=== PATIENT | male | born 1995 | race Caucasian/White ===

== ENCOUNTER 2020-07-05 07:43 | Emergency (ER) | payer SELFPAY ==
[~2020-07-05] VITALS: Ht 170.2 cm; Wt 88.0 kg
== END 2020-07-05 09:30 | disposition home or self-care (01) ==
LOC: ED 07:43
DX: S30.1XXA Contusion of abdominal wall, initial encounter (principal); Y04.8XXA Assault by other bodily force, initial encounter; F17.200 Nicotine dependence, unspecified, uncomplicated
CPT/HCPCS: 74177; 80048; 85025; 99284-25; Q9967

== ENCOUNTER 2021-06-25 09:15 | Emergency (ER) | payer OTHER ==
[~2021-06-25] VITALS: Ht 172.7 cm; Wt 88.5 kg
[2021-06-25] MEDS ORDERED: PREDNISONE20 MG PO (09:37)
== END 2021-06-25 09:49 | disposition home or self-care (01) ==
LOC: ED 09:15
DX: S30.1XXA Contusion of abdominal wall, initial encounter (principal); R21 Rash and other nonspecific skin eruption; F17.200 Nicotine dependence, unspecified, uncomplicated; Y09 Assault by unspecified means
CPT/HCPCS: 99282; J7512; Q0163

== ENCOUNTER 2021-12-01 10:14 | Emergency (ER) | payer SELFPAY ==
[~2021-12-01] VITALS: Ht 172.7 cm; Wt 88.5 kg
[~2021-12-01 10:14] MED LIST: PREDNISONE20 MG PO
[2021-12-01] MEDS ORDERED: PREDNISONE20 MG PO (11:14)
== END 2021-12-01 11:27 | disposition home or self-care (01) ==
LOC: ED 10:14
DX: L50.9 Urticaria, unspecified (principal); F17.200 Nicotine dependence, unspecified, uncomplicated
CPT/HCPCS: 99282; J7512

== ENCOUNTER 2022-06-02 14:50 | Emergency (ER) | payer SELFPAY ==
[~2022-06-02] VITALS: Ht 172.7 cm; Wt 73.1 kg
== END 2022-06-02 20:02 | disposition home or self-care (01) ==
LOC: ED 14:50
DX: S63.501A Unspecified sprain of right wrist, initial encounter (principal); F17.200 Nicotine dependence, unspecified, uncomplicated; Z91.013 Allergy to seafood; X50.1XXA Overexertion from prolonged static or awkward postures, initial encounter
CPT/HCPCS: 73110; 73200

== ENCOUNTER 2022-08-17 16:51 | Emergency (ER) | payer SELFPAY ==
[~2022-08-17] VITALS: Ht 172.7 cm; Wt 70.8 kg
== END 2022-08-20 10:03 | disposition home or self-care (01) ==
LOC: ED 16:51
DX: R45.851 Suicidal ideations (principal); R45.1 Restlessness and agitation; F15.90 Other stimulant use, unspecified, uncomplicated; Z91.013 Allergy to seafood
CPT/HCPCS: 36415; 80053; 81001; 84443; 85025; 96372; 99284; A9270-GY; G0480; U0003